=== PATIENT | female | born 1985 | race Two or more races ===

== ENCOUNTER 2023-11-10 11:39 | Inpatient (IN) | payer OTHER ==
[~2023-11-10] VITALS: Ht 160 cm; Wt 104.3 kg
[2023-11-10 12:47] LABS: HEMATOCRIT 33.9 % (36.0-45.00); HEMOGLOBIN 11.7 g/dL (12.0-15.00); MEAN CORPUSCULAR HEMOGLOBIN 31.5 pg (27.00-32.0); MEAN CORPUSCULAR HGB CONC 34.6 g/dl (32.0-36.0); PLATELET COUNT 238 K/uL (150-450); RED BLOOD COUNT 3.72 M/uL (4.00-6.00); RED CELL DISTRIBUTION WIDTH 13.6 % (11.5-14.5)
[2023-11-10 13:13] LABS: INR 0.94; PARTIAL THROMBOPLASTIN TIME 25.7 SECONDS (22.0-34.0); PROTHROMBIN TIME 9.9 SECONDS (9.0-11.5)
[2023-11-10 13:15] LABS: BILIRUBIN TOTAL 0.44 mg/dL (0.3-1.2); CALCIUM 9.4 mg/dL (8.5-10.1); CREATININE SERUM 0.43 mg/dL (0.55-1.02); GFR 165.22; GLOBULINA 3.8 G/DL (2.4-3.5); POTASSIUM 4.13 mEq/L (3.5-5.1); TOTAL PROTEIN 6.8 gm/dL (6.4-8.2)
[2023-11-11] MEDS ORDERED: RINGERS SOLUTION,LACTATED 1,000 ML IV SCH (14:15)
[2023-11-11] MEDS ORDERED: CEFAZOLIN SODIUM 1,000 MG VIAL IV SCH (14:15)
[2023-11-11] MEDS ORDERED: MAGNESIUM SULFATE IN WATER 50 ML IV SCH (14:15)
[2023-11-11] MEDS ORDERED: MAGNESIUM SULFATE IN WATER 500 ML IV SCH (14:30)
[2023-11-11] MEDS ORDERED: PRENATAL MULTI1 EAC3 PO (14:46)
[2023-11-12] MEDS ORDERED: DEXTROSE 5 % AND 0.9 % NACL 1,000 ML IV SCH (13:45)
[2023-11-12] MEDS ORDERED: MAGNESIUM SULFATE IN WATER 0.04 GM/ML IV.SOLN IV SCH (14:00)
== END 2023-11-13 09:39 | disposition home or self-care (01) | DRG 819 ==
LOC: OB/GYN 11-11 11:38 → LDR 11-11 13:59 → O/R 11-12 11:48 → LDR 11-12 13:02
PROVIDERS: ADMIT Obstetrics & Gynecology; ATTEND Obstetrics & Gynecology
PROC: 4A1HXCZ Monitoring of Products of Conception, Cardiac Rate, External Approach (ICD-10-PCS; 2023-11-11)
PROC: 0UVC7ZZ Restriction of Cervix, Via Natural or Artificial Opening (ICD-10-PCS; principal; 2023-11-12 08:00)
DX: O34.32 Maternal care for cervical incompetence, second trimester (principal); Z3A.21 21 weeks gestation of pregnancy; Z20.822 Contact with and (suspected) exposure to COVID-19

== ENCOUNTER 2024-03-16 09:26 | Inpatient (IN) | payer OTHER ==
[~2024-03-16] VITALS: Ht 160 cm; Wt 3.6 kg
[~2024-03-16 09:26] MED LIST: PRENATAL MULTI1 EAC3 PO
[2024-03-16 22:20] VITALS: BP 122/62; BP 143/84; O2SAT 99
[2024-03-16 22:25] VITALS: BP 122/62
[2024-03-16 23:14] LABS: HEMATOCRIT 34.3 % (36.0-45.00); HEMOGLOBIN 11.7 g/dL (12.0-15.00); MEAN CELL VOLUME 93.2 fL (80.00-100.00); MEAN CORPUSCULAR HEMOGLOBIN 31.7 pg (27.00-32.0); PLATELET COUNT 280 K/uL (150-450); RED BLOOD COUNT 3.68 M/uL (4.00-6.00); RED CELL DISTRIBUTION WIDTH 13.1 % (11.5-14.5)
[2024-03-16] MEDS ORDERED: FOLIC ACID20 MG PO (23:19)
[2024-03-16 23:28] LABS: INR 0.94; PARTIAL THROMBOPLASTIN TIME 28.5 SECONDS (22.0-34.0); PROTHROMBIN TIME 10.3 SECONDS (9.0-11.5)
[2024-03-16 23:32] LABS: ALBUMIN 2.9 gm/dL (3.4-5.0); BILIRUBIN TOTAL 0.45 mg/dL (0.3-1.2); CALCIUM 9.3 mg/dL (8.5-10.1); CREATININE SERUM 0.55 mg/dL (0.55-1.02); GFR 124.37; GLOBULINA 3.9 G/DL (2.4-3.5); POTASSIUM 4.36 mEq/L (3.5-5.1); TOTAL PROTEIN 6.8 gm/dL (6.4-8.2)
[2024-03-16 23:37] VITALS: BP 128/67
[2024-03-17 03:00] VITALS: BP 120/73
[2024-03-17 07:36] VITALS: BP 109/63
[2024-03-17] MEDS ORDERED: OXYTOCIN 500 ML IV ONE (09:15)
[2024-03-17 11:51] VITALS: BP 130/77
[2024-03-17 15:35] VITALS: BP 126/63; O2SAT 100
[2024-03-17] MEDS ORDERED: MORPHINE SULFATE 4 MG/ML VIAL IV SCH (21:36)
[2024-03-17] MEDS ORDERED: OXYTOCIN 1,000 ML IV ONE (21:45)
[2024-03-17] MEDS ORDERED: ERYTHROMYCIN BASE OPHT 1GM EACH TUBE OP ONE (22:15)
[2024-03-17] MEDS ORDERED: OXYTOCIN 10 UNITS/ML VIAL IV ONE (22:15)
[2024-03-17] MEDS ORDERED: CEFAZOLIN SODIUM 1,000 MG VIAL IV SCH (22:15)
[2024-03-18] MEDS ORDERED: KETOROLAC TROMETHAMINE 30 MG VIAL IV SCH
[2024-03-18 03:41] VITALS: BP 130/79; O2SAT 100
[2024-03-18] MEDS ORDERED: ACETAMINOPHEN 500 MG GEL..CAP PO SCH (06:00)
[2024-03-18 07:20] LABS: HEMATOCRIT 30.3 % (36.0-45.00); HEMOGLOBIN 10.5 g/dL (12.0-15.00); MEAN CELL VOLUME 91.5 fL (80.00-100.00); MEAN CORPUSCULAR HEMOGLOBIN 31.6 pg (27.00-32.0); MEAN CORPUSCULAR HGB CONC 34.6 g/dl (32.0-36.0); PLATELET COUNT 243 K/uL (150-450); RED BLOOD COUNT 3.31 M/uL (4.00-6.00); RED CELL DISTRIBUTION WIDTH 13.3 % (11.5-14.5)
[2024-03-18 08:31] VITALS: BP 124/86
[2024-03-18] MEDS ORDERED: GABAPENTIN 300 MG CAPSULE PO SCH (09:00)
[2024-03-18] MEDS ORDERED: DOCUSATE SODIUM 100MG CAP PO SCH (09:00)
[2024-03-18] MEDS ORDERED: SIMETHICONE 125 MG CAPSULE PO SCH (09:00)
[2024-03-18] MEDS ORDERED: PNV,CALCIUM 72/IRON/FOLIC ACID 1 TAB TABLET PO SCH (09:00)
[2024-03-18] MEDS ORDERED: IBUprofen 600 MG TABLET PO SCH (12:00)
[2024-03-18 16:14] VITALS: BP 119/78
[2024-03-19 00:27] VITALS: BP 120/81; O2SAT 98
[2024-03-19 08:49] VITALS: BP 118/80
[2024-03-19] MEDS ORDERED: ENOXAPARIN SODIUM 40 MG/0.4 ML SYRINGE SUBCUTANEO SCH (09:00)
== END 2024-03-19 20:33 | disposition home or self-care (01) | DRG 788 ==
LOC: OB/GYN 09:26 → LDR 21:52 → OB/GYN 03-17 21:33
PROVIDERS: Obstetrics & Gynecology Gynecology; ADMIT Obstetrics & Gynecology; ATTEND Obstetrics & Gynecology
PROC: 4A1HXCZ Monitoring of Products of Conception, Cardiac Rate, External Approach (ICD-10-PCS; 2024-03-16)
PROC: 10D00Z1 Extraction of Products of Conception, Low, Open Approach (ICD-10-PCS; principal; 2024-03-17 20:50)
DX: O82 Encounter for cesarean delivery without indication (principal); O62.1 Secondary uterine inertia; Z3A.39 39 weeks gestation of pregnancy; Z37.0 Single live birth; Z20.822 Contact with and (suspected) exposure to COVID-19